=== PATIENT | male | born 1955 | race Caucasian/White ===

== ENCOUNTER 2020-11-26 20:10 | Emergency (ER) | payer MEDICAID ==
[2020-11-26] MEDS ORDERED: Sodium Chloride 0.9% 10 ML Syringe FLUSH PRN (20:35)
[2020-11-26] MEDS ORDERED: Sodium Chloride 0.9% 1,000 ML IV SCH (20:45)
--- NOTE | 2020-11-26 20:52 | EDM.PDOC ---
ED HPI GENERAL MEDICAL PROBLEM - General Chief Complaint: Genitourinary Problem Stated Complaint: Not voiding enough, urinary retention hx Time Seen by Provider: 11/26/20 20:50 Source of Information: Reports: Patient History Limitations: Reports: No Limitations - History of Present Illness INITIAL COMMENTS - FREE TEXT/NARRATIVE: Patient presents to the ED for lower abdominal discomfort, decreased out put. 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 Last drink was 2 years ago and is currently still being monitored for this by law enforcement. He takes anxiety and depression medications along with a diuretic and hypertension medication. He states he has not had good urine output from his diuretic in the last couple of days. He then decreased his oral intake with concern for actual bladder outlet obstruction. He has had that problem in the past. He states he sits up in a chair he feels discomfort in the lower abdomen. Complains of increased abdominal girth but no shortness of breath. came in tonight for the decreased urine output. Continues to smoke Onset: Other (last couple of days) Past Medical History Cardiovascular History: Reports: Heart Failure, Hypertension Psychiatric History: Reports: Anxiety, Depression Social & Family History - Tobacco Use Tobacco Use Status *Q: Current Every Day Tobacco User - Alcohol Use Alcohol Use in Last Twelve Months: No Alcohol Use Comment: heavy drinker up until 2 years ago, currently under 24/7 monitoring program. ED ROS GENERAL - Review of Systems Review Of Systems: See Below Constitutional: Reports: Weight Gain HEENT: Reports: No Symptoms. Denies: Hearing Loss, Nose Pain, Sinus Problem Respiratory: Denies: Shortness of Breath, Wheezing, Pleuritic Chest Pain, Cough Cardiovascular: Denies: Chest Pain, Blood Pressure Problem, Claudication, Dyspnea on Exertion Endocrine: Reports: No Symptoms GI/Abdominal: Reports: Other (abdominal discomfort lower abdomen). Denies: Ano rexia, Diarrhea, Decreased Appetite, Nausea, Vomiting : Reports: Other (decreased urinary output) Neurological: Reports: No Symptoms Psychiatric: Reports: No Symptoms ED EXAM, GI/ABD - Physical Exam Exam: See Below Exam Limited By: No Limitations General Appearance: Alert, WD/WN, No Apparent Distress Eyes: Bilateral: Normal Appearance, EOMI Ears: Normal External Exam, Normal Canal Nose: Normal Inspection, Normal Mucosa Throat/Mouth: Normal Inspection, Normal Lips, Normal Oropharynx, Normal Voice Head: Atraumatic Neck: Normal Inspection, Supple, Non-Tender, Full Range of Motion Respiratory/Chest: No Respiratory Distress, Lungs Clear, Normal Breath Sounds, No Accessory Muscle Use Cardiovascular: Normal Peripheral Pulses, Regular Rate, Rhythm, No Murmur GI/Abdominal Exam: Normal Bowel Sounds, Other (obese, soft nontender to palpation. possible fluid shift ) Extremities: Normal Inspection, Pedal Edema (1+ to the ankles bilaterally) Neurological: Alert, Oriented Psychiatric: Normal Affect Course - Orders/Labs/Meds Orders: Active Orders 24 hr Category Date Time Status Bladder Scan [RC] ASDIRECTED Care 11/26/20 20:19 Active Sodium Chloride 0.9% [Normal Saline] 1,000 ml Med 11/26/20 20:45 Active IV ASDIRECTED Sodium Chloride 0.9% [Saline Flush] Med 11/26/20 20:35 Active 10 ml FLUSH ASDIRECTED PRN Peripheral IV Insertion Adult [OM.PC] Routine Oth 11/26/20 20:35 Ordered Medication Orders Sodium Chloride (Normal Saline) 1,000 mls @ 1,000 mls/hr IV ASDIRECTED AUGUST Sodium Chloride (Sodium Chloride 0.9% 10 Ml Syringe) 10 ml FLUSH ASDIRECTED PRN PRN Reason: Keep Vein Open Labs: Laboratory Tests 11/26/20 11/26/20 11/26/20 Range/Units 20:25 20:48 20:48 WBC 9.3 (4.0-10.0) x10^3/uL RBC 4.47 L (4.5-6.0) x10^6/uL Hgb 14.6 (14.0-18.0) g/dL Hct 42.0 (40.0-52.0) % MCV 94.0 H (78.0-93.0) fL MCH 32.7 H (26.0-32.0) pg MCHC 34.8 (32.0-36.0) g/dL RDW Coeff of [place] 13.1 (10.0-15.0) % Plt Count 293 (130-400) x10^3/uL Neut % (Auto) 64.4 (50.0-80.0) % Lymph % (Auto) 18.6 L (25.0-50.0) % [place] % (Auto) 13.3 H (2.0-11.0) % Eos % (Auto) 3.3 (0.0-4.0) % Baso % (Auto) 0.4 (0.2-1.2) % Sodium 140 (136-145) mmol/L Potassium 4.0 (3.5-5.1) mmol/L Chloride 104 (98-107) mmol/L Carbon Dioxide 29 (21-32) mmol/L Anion Gap 11.0 (5-15) mmol/L BUN 13 (7-18) mg/dL Creatinine 1.2 (0.70-1.30) mg/dL Est Cr Clr Drug Dosing TNP Estimated GFR (MDRD) > 60 Glucose 126 H (70-99) mg/dL Calcium 9.0 (8.5-10.1) mg/dL Corrected Calcium 9.4 (8.5-10.1) mg/dL Total Bilirubin 0.4 (0.2-1.0) mg/dL AST 33 (15-37) U/L ALT 23 (16-63) U/L Alkaline Phosphatase 58 (46-116) U/L Creatine Kinase 72 (39-308) U/L Total Protein 7.3 (6.4-8.2) g/dL Albumin 3.5 (3.4-5.0) g/dL Globulin 3.8 Albumin/Globulin Ratio 0.92 Urine Color Dark yellow H (YELLOW) Urine Appearance Clear (CLEAR) Urine pH 6.0 (5.0-8.0) Ur Specific [place] 1.025 Urine Protein 30 H (NEGATIVE) mg/dL Urine Glucose (UA) Negative (NEGATIVE) mg/dL Urine Ketones Trace H (NEGATIVE) mg/dL Urine Occult Blood Negative (NEGATIVE) Urine Nitrite Negative (NEGATIVE) Urine Bilirubin Small H (NEGATIVE) Urine Urobilinogen 0.2 (0.2) EU/dL Ur Leukocyte Esterase Negative (NEGATIVE) U Hyaline Cast (Auto) Moderate Urine RBC 0-5 (NOT SEEN) /HPF Urine WBC 0-5 (NOT SEEN) /HPF Ur Squamous Epith Cells Rare (NOT SEEN) /HPF Urine Bacteria Not seen (NOT SEEN) /HPF Urine Mucus Many H (NOT SEEN) /LPF Meds: Medications Generic Name Dose Route Start Last Admin Trade Name Freq PRN Reason Stop Dose Admin Sodium Chloride 1,000 mls @ 1,000 mls/hr 11/26/20 20:45 Normal Saline IV ASDIRECTED AUGUST Sodium Chloride 10 ml 11/26/20 20:35 Sodium Chloride 0.9% 10 Ml Syringe FLUSH ASDIRECTED PRN Keep Vein Open - Re-Assessments/Exams Free Text/Narrative Re-Assessment/Exam: 11/26/20 20:55 bladder scan after urinating 75 ml is 11 ml. Concern for renal issues with diuretic. Will give him 1 liter normal saline, check labs and urine. 11/26/20 21:21 discussed normal labs with patient. He will hydrate better. fluids infused and he managed to urinate well. Discussed weight loss and follow up with his physician Departure - Departure Time of Disposition: 21:23 Disposition: Home, Self-Care 01 Condition: Good Clinical Impression: Dehydration, Abdominal discomfort - Discharge Information *PRESCRIPTION DRUG MONITORING PROGRAM REVIEWED*: Not Applicable *COPY OF PRESCRIPTION DRUG MONITORING REPORT IN PATIENT SUE: Not Applicable Instructions: Dehydration, Adult, [id number] Referrals: Anne Angel DO [Primary Care Provider] - Forms: ED Department Discharge Additional Instructions: Make appointment to follow up with your physician . Increase your hydration. Testing revealed normal function of your kidneys. - My Orders Last 24 Hours: My Active Orders 11/26/20 20:19 Bladder Scan [RC] ASDIRECTED 11/26/20 20:35 Sodium Chloride 0.9% [Saline Flush] 10 ml FLUSH ASDIRECTED PRN Peripheral IV Insertion Adult [OM.PC] Routine 11/26/20 20:45 Sodium Chloride 0.9% [Normal Saline] 1,000 ml IV ASDIRECTED - Assessment/Plan Last 24 Hours: My Active Orders 11/26/20 20:19 Bladder Scan [RC] ASDIRECTED 11/26/20 20:35 Sodium Chloride 0.9% [Saline Flush] 10 ml FLUSH ASDIRECTED PRN Peripheral IV Insertion Adult [OM.PC] Routine 11/26/20 20:45 Sodium Chloride 0.9% [Normal Saline] 1,000 ml IV ASDIRECTED
[2020-11-26 21:12] LABS: CHLORIDE,CL 104 mmol/L (98-107); SODIUM,NA 140 mmol/L (136-145)
== END 2020-11-26 22:33 | disposition home or self-care (01) ==
LOC: VM.ED 20:10
DX: R10.30 Lower abdominal pain, unspecified (principal); E86.0 Dehydration; I11.0 Hypertensive heart disease with heart failure; I50.9 Heart failure, unspecified; Z72.0 Tobacco use
CPT/HCPCS: 36415; 80053; 81001; 82550; 85025; 99284; 99284-25; J7030

== ENCOUNTER 2022-10-13 18:59 | Emergency (ER) | payer MEDICAID, MEDICARE | END 2022-10-13 19:55 | disposition home or self-care (01) | LOC: VM.ED 18:59 | DX: S61.412A Laceration without foreign body of left hand, initial encounter (principal); F17.210 Nicotine dependence, cigarettes, uncomplicated; I11.0 Hypertensive heart disease with heart failure; I50.9 Heart failure, unspecified; Z79.899 Other long term (current) drug therapy; Z88.5 Allergy status to narcotic agent; Y08.09XA Assault by strike by other specified type of sport equipment, initial encounter | CPT/HCPCS: 12004; 73130-LT; 99283 ==